=== PATIENT | female | born 1965 | race Two or more races ===

== ENCOUNTER 2017-08-20 08:30 | Outpatient (CLI) | payer OTHER | END 2017-08-20 09:30 | disposition home or self-care (01) | LOC: RAD 08:30 | DX: J44.9 Chronic obstructive pulmonary disease, unspecified (principal); M12.822 Other specific arthropathies, not elsewhere classified, left elbow; M19.022 Primary osteoarthritis, left elbow ==

== ENCOUNTER 2017-08-20 08:30 | Outpatient (CLI) | payer OTHER | END 2017-08-21 06:39 | disposition home or self-care (01) | LOC: MAMO-SONO 08:30 | DX: Z12.31 Encounter for screening mammogram for malignant neoplasm of breast (principal); Z87.898 Personal history of other specified conditions; N62 Hypertrophy of breast ==

== ENCOUNTER 2017-08-20 08:54 | Outpatient (CLI) | payer OTHER | END 2017-08-20 09:01 | disposition home or self-care (01) | LOC: NUCLEAR 08:54 | DX: M81.0 Age-related osteoporosis without current pathological fracture (principal) ==

== ENCOUNTER 2020-05-16 10:56 | Emergency (ER) | payer OTHER ==
[~2020-05-16] VITALS: Ht 157.5 cm; Wt 72.6 kg
[2020-05-16] MEDS ORDERED: MONTELUKAST SOD10 MG PO (11:07)
[2020-05-16] MEDS ORDERED: AMBIEN10 MG PO (11:07)
[2020-05-16] MEDS ORDERED: OMEPRAZOLE40 MG PO (11:08)
[2020-05-16] MEDS ORDERED: SEROQUEL400 MG PO (11:08)
[2020-05-16] MEDS ORDERED: PROAIR HFA8.5 GM IH (11:09)
[2020-05-16] MEDS ORDERED: ADVAIR 100-501 EACH IH (11:10)
[2020-05-16] MEDS ORDERED: SURFAK240 MG PO (18:01)
[2020-05-16] MEDS ORDERED: IBU400 MG PO (18:01)
[2020-05-16] MEDS ORDERED: SOOTHE XP EYE D15 ML PO (18:01)
== END 2020-05-16 18:17 | disposition home or self-care (01) ==
LOC: ER 10:56
DX: K59.09 Other constipation (principal); K56.690 Other partial intestinal obstruction; Z03.818 Encounter for observation for suspected exposure to other biological agents ruled out; R10.84 Generalized abdominal pain

== ENCOUNTER 2020-12-20 12:19 | Outpatient (CLI) | payer OTHER ==
[~2020-12-20 12:19] MED LIST: ADVAIR 100-501 EACH IH; AMBIEN10 MG PO; IBU400 MG PO; MONTELUKAST SOD10 MG PO; OMEPRAZOLE40 MG PO; PROAIR HFA8.5 GM IH; SEROQUEL400 MG PO; SOOTHE XP EYE D15 ML PO; SURFAK240 MG PO
== END 2020-12-20 12:26 | disposition home or self-care (01) ==
LOC: RAD 12:19 → SONOGRAMA 12-26 10:15
PROVIDERS: ATTEND Internal Medicine Cardiovascular Disease
DX: M12.822 Other specific arthropathies, not elsewhere classified, left elbow (principal); M12.812 Other specific arthropathies, not elsewhere classified, left shoulder; Z12.31 Encounter for screening mammogram for malignant neoplasm of breast; N64.59 Other signs and symptoms in breast

== ENCOUNTER 2021-05-04 09:25 | Emergency (ER) | payer OTHER ==
[~2021-05-04] VITALS: Ht 154.9 cm; Wt 70.3 kg
== END 2021-05-04 13:39 | disposition home or self-care (01) ==
LOC: ER 09:25
DX: S30.0XXA Contusion of lower back and pelvis, initial encounter (principal); M54.59 Other low back pain; W07.XXXA Fall from chair, initial encounter; Y93.89 Activity, other specified; Y92.098 Other place in other non-institutional residence as the place of occurrence of the external cause; Y99.8 Other external cause status

== ENCOUNTER 2021-06-14 10:10 | Emergency (ER) | payer OTHER ==
[~2021-06-14] VITALS: Ht 157.5 cm; Wt 74.8 kg
[2021-06-14] MEDS ORDERED: DICLOFENAC POTA50 MG PO (18:26)
== END 2021-06-14 19:13 | disposition home or self-care (01) ==
LOC: ER 10:10
DX: S92.351A Displaced fracture of fifth metatarsal bone, right foot, initial encounter for closed fracture (principal); S00.83XA Contusion of other part of head, initial encounter; W10.8XXA Fall (on) (from) other stairs and steps, initial encounter; Y93.89 Activity, other specified; Y92.89 Other specified places as the place of occurrence of the external cause; Y99.8 Other external cause status

== ENCOUNTER 2021-08-19 12:22 | Outpatient (CLI) | payer OTHER ==
[~2021-08-19 12:22] MED LIST changes: +DICLOFENAC POTA50 MG PO
== END 2021-08-19 12:29 | disposition home or self-care (01) ==
LOC: RAD 12:22
PROVIDERS: ATTEND Orthopaedic Surgery
DX: S92.354A Nondisplaced fracture of fifth metatarsal bone, right foot, initial encounter for closed fracture (principal)

== ENCOUNTER 2021-09-12 12:03 | Outpatient (CLI) | payer OTHER | END 2021-09-12 12:13 | disposition home or self-care (01) | LOC: RAD 12:03 | PROVIDERS: ATTEND Orthopaedic Surgery | DX: S92.354A Nondisplaced fracture of fifth metatarsal bone, right foot, initial encounter for closed fracture (principal) ==

== ENCOUNTER 2021-09-24 06:56 | Outpatient (CLI) | payer OTHER | END 2021-09-24 07:07 | disposition home or self-care (01) | LOC: LAB 06:56 | PROVIDERS: ATTEND Orthopaedic Surgery | DX: M85.9 Disorder of bone density and structure, unspecified (principal); M81.8 Other osteoporosis without current pathological fracture; E21.3 Hyperparathyroidism, unspecified; E56.1 Deficiency of vitamin K ==

== ENCOUNTER 2021-09-25 13:16 | Outpatient (CLI) | payer OTHER | END 2021-09-25 13:26 | disposition home or self-care (01) | LOC: TOM 13:16 | PROVIDERS: ATTEND Internal Medicine Cardiovascular Disease | DX: G30.9 Alzheimer's disease, unspecified (principal); R41.2 Retrograde amnesia ==

== ENCOUNTER 2021-10-17 13:10 | Outpatient (CLI) | payer OTHER | END 2021-10-17 13:11 | disposition home or self-care (01) | LOC: RAD 13:10 | PROVIDERS: ATTEND Orthopaedic Surgery | DX: S92.354G Nondisplaced fracture of fifth metatarsal bone, right foot, subsequent encounter for fracture with delayed healing (principal) ==

== ENCOUNTER → 2021-10-17 13:39 | Outpatient (CLI) | payer OTHER | END | disposition home or self-care (01) | LOC: NUCLEAR 13:39 | PROVIDERS: ATTEND Orthopaedic Surgery | DX: M81.0 Age-related osteoporosis without current pathological fracture (principal); Z88.5 Allergy status to narcotic agent; Z88.8 Allergy status to other drugs, medicaments and biological substances ==

== ENCOUNTER 2021-12-09 10:52 | Outpatient (CLI) | payer OTHER | END 2021-12-09 12:37 | disposition home or self-care (01) | LOC: RAD 10:52 | PROVIDERS: ATTEND Orthopaedic Surgery | DX: S92.354G Nondisplaced fracture of fifth metatarsal bone, right foot, subsequent encounter for fracture with delayed healing (principal) ==

== ENCOUNTER 2022-03-03 12:04 | Emergency (ER) | payer OTHER ==
[~2022-03-03] VITALS: Ht 157.5 cm; Wt 76.7 kg
[2022-03-03] MEDS ORDERED: DOLOGEN CAPLET1 EACH PO (22:50)
[2022-03-03] MEDS ORDERED: ZITHROMAX500 MG PO (22:50)
[2022-03-03] MEDS ORDERED: PROAIR HFA8.5 GM IH (22:50)
[2022-03-03] MEDS ORDERED: TUSNEL LIQUID178 ML PO (22:50)
== END 2022-03-03 22:54 | disposition home or self-care (01) ==
LOC: ER 12:04
DX: U07.1 COVID-19 (principal); A49.3 Mycoplasma infection, unspecified site; B34.9 Viral infection, unspecified; Z88.8 Allergy status to other drugs, medicaments and biological substances

== ENCOUNTER 2022-05-22 10:21 | Outpatient (CLI) | payer OTHER ==
[~2022-05-22 10:21] MED LIST changes: +DOLOGEN CAPLET1 EACH PO; +TUSNEL LIQUID178 ML PO; +ZITHROMAX500 MG PO
== END 2022-05-22 10:26 | disposition home or self-care (01) ==
LOC: RAD 10:21
PROVIDERS: ATTEND Orthopaedic Surgery
DX: M25.571 Pain in right ankle and joints of right foot (principal)

== ENCOUNTER 2022-06-05 10:19 | Outpatient (CLI) | payer OTHER | END 2022-06-05 10:21 | disposition home or self-care (01) | LOC: RAD 10:19 | PROVIDERS: ATTEND Internal Medicine Cardiovascular Disease | DX: Z12.31 Encounter for screening mammogram for malignant neoplasm of breast (principal); M46.48 Discitis, unspecified, sacral and sacrococcygeal region; N63.11 Unspecified lump in the right breast, upper outer quadrant ==

== ENCOUNTER 2022-06-12 07:07 | Outpatient (CLI) | payer OTHER | END 2022-06-12 07:13 | disposition home or self-care (01) | LOC: TOM 07:07 | PROVIDERS: ATTEND Internal Medicine Cardiovascular Disease | DX: R55 Syncope and collapse (principal) ==

== ENCOUNTER 2022-06-12 08:25 | Outpatient (CLI) | payer OTHER | END 2022-06-12 08:32 | disposition home or self-care (01) | LOC: NUCLEAR 08:25 | PROVIDERS: ATTEND Internal Medicine Cardiovascular Disease | DX: R55 Syncope and collapse (principal); Z88.8 Allergy status to other drugs, medicaments and biological substances; Z88.5 Allergy status to narcotic agent ==

== ENCOUNTER 2022-07-03 08:08 | Outpatient (CLI) | payer OTHER | END 2022-07-03 08:11 | disposition home or self-care (01) | LOC: NUCLEAR 08:08 | PROVIDERS: ATTEND Internal Medicine Cardiovascular Disease | DX: R55 Syncope and collapse (principal) ==

== ENCOUNTER 2022-07-03 10:43 | Emergency (ER) | payer OTHER ==
[~2022-07-03] VITALS: Ht 157.5 cm; Wt 72.6 kg
== END 2022-07-03 14:39 | disposition home or self-care (01) ==
LOC: ER 10:43
DX: M25.512 Pain in left shoulder (principal); Z88.6 Allergy status to analgesic agent; Z91.041 Radiographic dye allergy status

== ENCOUNTER 2022-07-31 11:43 | Outpatient (CLI) | payer OTHER | END 2022-07-31 11:50 | disposition home or self-care (01) | LOC: RAD 11:43 | PROVIDERS: ATTEND Orthopaedic Surgery | DX: M25.512 Pain in left shoulder (principal) ==

== ENCOUNTER 2022-10-16 15:10 | Outpatient (CLI) | payer OTHER | END 2022-10-16 15:24 | disposition home or self-care (01) | LOC: RAD 15:10 | PROVIDERS: ATTEND Orthopaedic Surgery | DX: M25.561 Pain in right knee (principal); M23.91 Unspecified internal derangement of right knee ==

== ENCOUNTER → 2022-10-16 | Outpatient (CLI) | payer OTHER | END | disposition home or self-care (01) | LOC: RAD 12:21 | PROVIDERS: ATTEND Orthopaedic Surgery | DX: S92.354G Nondisplaced fracture of fifth metatarsal bone, right foot, subsequent encounter for fracture with delayed healing (principal) ==

== ENCOUNTER 2023-01-27 14:08 | Outpatient (CLI) | payer OTHER | END 2023-01-27 14:10 | disposition home or self-care (01) | LOC: EKG 14:08 | PROVIDERS: ATTEND Internal Medicine Cardiovascular Disease | DX: I10 Essential (primary) hypertension (principal) ==

== ENCOUNTER 2023-04-27 11:13 | Emergency (ER) | payer OTHER ==
[~2023-04-27] VITALS: Ht 157.5 cm; Wt 77.1 kg
[2023-04-27] MEDS ORDERED: SINGULAIR10 MG (12:00)
[2023-04-27] MEDS ORDERED: DICLOFENAC SODI75 MG PO (14:22)
== END 2023-04-27 14:30 | disposition home or self-care (01) ==
LOC: ER 11:13
DX: M25.562 Pain in left knee (principal); Z88.8 Allergy status to other drugs, medicaments and biological substances
CPT/HCPCS: 73560; 96372; 99283; J1885

== ENCOUNTER 2024-03-31 08:14 | Outpatient (CLI) | payer OTHER ==
[~2024-03-31 08:14] MED LIST changes: +DICLOFENAC SODI75 MG PO; +INTESTINEX680 M1 PO; +MIRALAX17 GM PO; +SINGULAIR10 MG
== END 2024-03-31 08:15 | disposition home or self-care (01) ==
LOC: NUCLEAR 08:14
DX: R07.89 Other chest pain (principal); R06.02 Shortness of breath; R06.00 Dyspnea, unspecified; J45.20 Mild intermittent asthma, uncomplicated

== ENCOUNTER 2024-06-20 07:08 | Outpatient (CLI) | payer OTHER | END 2024-06-20 07:10 | disposition home or self-care (01) | LOC: NUCLEAR 07:08 | DX: R06.02 Shortness of breath (principal) | CPT/HCPCS: 78452; 93017; A9500; J1250 ==

== ENCOUNTER 2024-12-28 09:49 | Outpatient (CLI) | payer OTHER | END 2024-12-28 09:50 | disposition home or self-care (01) | LOC: RAD 09:49 | PROVIDERS: ATTEND Orthopaedic Surgery | DX: M25.572 Pain in left ankle and joints of left foot (principal) ==

== ENCOUNTER 2025-04-03 10:33 | Outpatient (CLI) | payer OTHER | END 2025-04-03 10:34 | disposition home or self-care (01) | LOC: NUCLEAR 10:33 | PROVIDERS: ATTEND Orthopaedic Surgery | DX: M81.0 Age-related osteoporosis without current pathological fracture (principal) ==

== ENCOUNTER 2025-04-13 14:00 | Outpatient (CLI) | payer OTHER | END 2025-04-13 14:01 | disposition home or self-care (01) | LOC: MAMO-SONO 14:00 | PROVIDERS: ATTEND Internal Medicine | DX: N60.29 Fibroadenosis of unspecified breast (principal); Z12.31 Encounter for screening mammogram for malignant neoplasm of breast ==

== ENCOUNTER 2025-05-30 07:50 | Outpatient (CLI) | payer OTHER ==
[2025-05-30 10:11] LABS: ALT/SGPT 26.0 U/L (12-78); AST/SGOT 13.0 U/L (15-37); BILIRUBIN TOTAL 0.36 mg/dL (0.3-1.2); BUN CREA RATIO 17.0 (7.0-25.0); CREATININE SERUM 0.99 mg/dL (0.55-1.02); GFR 57.02; GLOBULINA 4.1 G/DL (2.4-3.5); GLUCOSE FASTING 90.0 mg/dL (65-100); OSMOLALITY SERUM 284.0 MOSM/KG (275-295); TSH 0.942 uIU/mL (0.358-3.74)
[2025-05-31 16:10] LABS: CALCIUM IONIZED 5.2 mg/dL (4.5-5.6)
== END 2025-05-30 07:55 | disposition home or self-care (01) ==
LOC: LAB 07:50
PROVIDERS: ATTEND Internal Medicine
DX: E55.9 Vitamin D deficiency, unspecified (principal); M85.9 Disorder of bone density and structure, unspecified; E21.3 Hyperparathyroidism, unspecified; E56.1 Deficiency of vitamin K; E88.9 Metabolic disorder, unspecified; M81.8 Other osteoporosis without current pathological fracture; E03.9 Hypothyroidism, unspecified

== ENCOUNTER 2025-06-08 08:41 | Outpatient (CLI) | payer OTHER | END 2025-06-08 08:43 | disposition home or self-care (01) | LOC: RAD 08:41 | PROVIDERS: ATTEND Orthopaedic Surgery | DX: M54.50 Low back pain, unspecified (principal); M81.0 Age-related osteoporosis without current pathological fracture ==